=== PATIENT | male | born 1975 | race Caucasian/White ===

== ENCOUNTER 2017-03-24 06:46 | Emergency (ER) | payer OTHER ==
[2017-03-24] MEDS ORDERED: LIDOCAINE 2% JELLY 30 ML TUBE TOP ONE (07:13)
--- NOTE | 2017-03-24 07:14 | ER Document Report ---
ED General - General Chief Complaint: Rectal Pain Stated Complaint: RECTAL PAIN Time Seen by Provider: 03/24/17 07:03 Mode of Arrival: Ambulatory Information source: Patient Notes: 41 yr old male presents with complaints of rectal pain of a few day duration, pt denies any fevers or chills, admits ot pain with bm TRAVEL OUTSIDE OF THE [place] IN LAST 30 DAYS: No - HPI Onset: Other - 3-4 days of rectal pain Onset/Duration: Persistent Quality of pain: Burning, Sharp Severity: Mild Pain Level: 1 Associated symptoms: Other Exacerbated by: Other - bowel movements Relieved by: Denies Similar symptoms previously: No Recently seen / treated by doctor: No - Related Data Allergies/Adverse Reactions: No Known Allergies Allergy (Unverified 03/24/17 06:57) Home Medications: Current Home Medications Albuterol Sulfate [Proair HFA] 2 puff IH Q4 PRN 03/24/17 [History] Aspirin [Aspirin 81 mg Chewable Tablet] 81 mg PO DAILY 03/24/17 [History] Atorvastatin Calcium 40 mg PO DAILY 03/24/17 [History] Lisinopril 1 tab PO DAILY 03/24/17 [History] Ranitidine HCl [Zantac] 150 mg PO DAILY 03/24/17 [History] Umeclidinium Brm/Vilanterol Tr [Anoro Ellipta 62.5-25 Mcg INH] 1 each IH DAILY 03/24/17 [History] Past Medical History - Social History Smoking Status: Never Smoker Cigarette use (# per day): No Chew tobacco use (# tins/day): No Smoking Education Provided: No Frequency of alcohol use: Occasional Family History: Reviewed & Not Pertinent Patient has suicidal ideation: No Patient has homicidal ideation: No Pulmonary Medical History: Reports: Hx COPD Renal/ Medical History: Denies: Hx Peritoneal Dialysis - Immunizations Hx Diphtheria, Pertussis, Tetanus Vaccination: - unknown Review of Systems - Review of Systems Notes: REVIEW OF SYSTEMS: CONSTITUTIONAL : Denies fever, chills, or sweats. Denies recent illness. EENT: Denies eye, ear, throat, or mouth pain or symptoms. Denies nasal or sinus congestion or discharge. Denies throat, tongue, or mouth swelling or difficulty swallowing. CARDIOVASCULAR: Denies chest pain. Denies palpitations or racing or irregular heart beat. Denies ankle edema. RESPIRATORY: Denies cough, cold, or chest congestion. Denies shortness of breath, difficulty breathing, or wheezing. GASTROINTESTINAL: rectal pain GENITOURINARY: Denies difficulty urinating, painful urination, burning, frequency, blood in urine, or discharge. MUSCULOSKELETAL: Denies back or neck pain or stiffness. Denies joint pain or swelling. SKIN: Denies rash, lesions or sores. HEMATOLOGIC : Denies easy bruising or bleeding. LYMPHATIC: Denies swollen, enlarged glands. NEUROLOGICAL: Denies confusion or altered mental status. Denies passing out or loss of consciousness. Denies dizziness or lightheadedness. Denies headache. Denies weakness or paralysis or loss of use of either side. Denies problems with gait or speech. Denies sensory loss, numbness, or tingling. Denies seizures. PSYCHIATRIC: Denies anxiety or stress. Denies depression, suicidal ideation, or homicidal ideation. ALL OTHER SYSTEMS REVIEWED AND NEGATIVE. Dictation was performed using [employer] voice recognition software PHYSICAL EXAMINATION: GENERAL: Well-appearing, well-nourished and in no acute distress. morbidly obese HEAD: Atraumatic, normocephalic. EYES: Pupils equal round and reactive to light, extraocular movements intact, sclera anicteric, conjunctiva are normal. ENT: Nares patent, oropharynx clear without exudates. Moist mucous membranes. NECK: Normal range of motion, supple without lymphadenopathy LUNGS: pt on O2 baseline HEART: Regular rate and rhythm without murmurs ABDOMEN: Soft, nontender, nondistended abdomen. No guarding, no rebound. No masses appreciated. rectal exam notes a small pimple near the anus, popped easily with qtip on pressure Musculoskeletal: Normal range of motion, no pitting or edema. No cyanosis. NEUROLOGICAL: Cranial nerves grossly intact. Normal speech, normal gait. Normal sensory, motor exams PSYCH: Normal mood, normal affect. SKIN: Warm, Dry, normal turgor, no rashes or lesions noted. Physical Exam - Vital signs Vitals: Temp Pulse Resp BP Pulse Ox 98 F 81 20 179/91 H 97 03/24/17 06:53 03/24/17 06:53 03/24/17 06:53 03/24/17 06:53 03/24/17 06:53 Course - Re-evaluation Re-evalutation: 03/24/17 07:28 pt has a small pimple how ever given the location a ct has been ordered to rule out a deeper abscess 03/24/17 10:48 Ct noted no abscess, inflammation noted, pt to be started on clindamycin otherwise well appearing and needs follow up with surgical clinic After performing a Medical Screening Examination, I estimate there is LOW risk for OPEN FRACTURE, COMPARTMENT SYNDROME, TENDON RUPTURE, ACUTE NEUROVASCULAR INJURY, or RETAINED FOREIGN BODY, thus I consider the discharge disposition reasonable. Also, there is no evidence or peritonitis, sepsis, or toxicity. I have reevaluated this patient multiple times and no significant life threatening changes are noted. The patient and I have discussed the diagnosis and risks, and we agree with discharging home with close follow-up with the understanding that symptoms and presentations can change. We also discussed returning to the Emergency Department immediately if new or worsening symptoms occur. We have discussed the symptoms which are most concerning (e.g., changing or worsening pain, fever, numbness, weakness, cool or painful digits) that necessitate immediate return. - Vital Signs Vital signs: Temp Pulse Resp BP Pulse Ox 98 F 81 20 179/91 H 97 03/24/17 06:53 03/24/17 06:53 03/24/17 06:53 03/24/17 06:53 03/24/17 06:53 - Laboratory Result Diagrams: 03/24/17 08:42 03/24/17 09:15 Laboratory results interpreted by me: 03/24/17 03/24/17 08:42 09:15 RDW 14.1 H AST 16 L ALT 17 L - Diagnostic Test Radiology reviewed: Image reviewed, Reports reviewed - inflammaiton Discharge - Discharge Clinical Impression: Cellulitis Qualifiers: Site of cellulitis: unspecified site Qualified Code(s): L03.90 - Cellulitis, unspecified Condition: Stable Disposition: HOME, SELF-CARE Instructions: MRSA Cellulitis ([facility]) Additional Instructions: Follow-up in 2-3 days or return immediately if there are any other concerns Prescriptions: Clindamycin HCl 300 mg PO Q6 #40 capsule Hydrocodone/Acetaminophen [Union 5-325 mg Tablet] 1 tab PO Q6 #10 tablet
[2017-03-24] MEDS ORDERED: CLINDAMYCIN HCL 150 MG CAPSULE PO ONE (07:16)
[2017-03-24 08:59] LABS: ABSOLUTE BASOPHILS # (AUTO) 0.1 10^3/uL (0.0-0.2); ABSOLUTE EOSINOPHILS # (AUTO) 0.2 10^3/uL (0.0-0.6); ABSOLUTE MONOCYTES (AUTO) 1.1 10^3/uL (0.1-1.4); ABSOLUTE NEUT (AUTO) 6.7 10^3/uL (1.7-8.2); BASOPHILS % (AUTO) 0.9 % (0-2); EOSINOPHILS % (AUTO) 1.9 % (0-6); HEMATOCRIT 43.1 % (37.9-51.0); HEMOGLOBIN 14.6 g/dL (13.5-17.0); HGB HCT DIFFERENCE 0.7; LYMPHOCYTES % (AUTO) 19.7 % (13-45); MEAN CORPUSCULAR HEMOGLOBIN 31.5 pg (27.0-33.4); MEAN CORPUSCULAR VOLUME 93 fl (80-97); MONOCYTES % (AUTO) 10.6 % (3-13); RED BLOOD COUNT 4.64 10^6/uL (4.35-5.55); RED CELL DISTRIBUTION WIDTH 14.1 % (11.5-14.0); SEGMENTED NEUTROPHILS % (AUTO) 66.9 % (42-78); WHITE BLOOD COUNT 9.9 10^3/uL (4.0-10.5)
[2017-03-24 09:40] LABS: ALANINE AMINOTRANSFERASE 17 U/L (21-72); ALBUMIN 3.8 g/dL (3.5-5.0); ALKALINE PHOSPHATASE 70 U/L (38-126); ANION GAP 10 (5-19); ASPARTATE AMINO TRANSFERASE 16 U/L (17-59); BILIRUBIN,DIRECT 0.3 mg/dL (0.0-0.4); BILIRUBIN,TOTAL 0.6 mg/dL (0.2-1.3); BLOOD UREA NITROGEN 20 mg/dL (7-20); CARBON DIOXIDE 27 mmol/L (22-30); CHLORIDE 102 mmol/L (98-107); CREATININE RESULT 0.73 mg/dL (0.52-1.25); GLUCOSE 98 mg/dL (75-110); POTASSIUM 4.8 mmol/L (3.6-5.0); SODIUM 138.9 mmol/L (137-145); TOTAL PROTEIN 6.8 g/dL (6.3-8.2)
--- NOTE | 2017-03-24 10:26 | RADIOLOGY REPORT (SQ) ---
EXAM DESCRIPTION: CT PELVIS WITH COMPLETED DATE/TIME: 03/24/2017 10:11 am REASON FOR STUDY: ana rectal vs perianal abscess COMPARISON: None. TECHNIQUE: CT scan of the pelvis performed using helical scanning technique with dynamic intravenous contrast injection. No oral contrast. Images reviewed with lung, soft tissue, and bone windows. Rec onstructed coronal and sagittal MPR images reviewed. Delayed images for evaluation of the urinary sys tem also acquired. All images stored on PACS. All CT scanners at this facility use dose modulation, iterative reconstruction, and/or weight based d osing when appropriate to reduce radiation dose to as low as reasonably achievable (ALARA). [facility]: Dose Right [facility]: CareDose [facility]: Dose Right [facility]: Teradose 4D [facility]: Spotlime CONTRAST TYPE AND DOSE: contrast/concentration: Isovue 370.00 mg/ml; Total Contrast Delivered: 100.0 ml; Total Saline Delivered: 72.0 ml RENAL FUNCTION: GFR > 60. RADIATION DOSE: Up-to-date CT equipment and radiation dose reduction techniques were employed. CTDIv ol: 30.0 mGy. DLP: 3113 mGy-cm.. LIMITATIONS: Body habitus. FINDINGS: There is stranding of the fat in the presacral space extending to the posterior rectal mes entery. Stranding of the perianal soft tissues. No organized fluid collection. Bilateral external iliac and inguinal nodes measuring up to about 1 cm in short axis. Pelvic organs are otherwise unremarkable. No acute bone findings. IMPRESSION: Perirectal and perianal inflammation. No abscess identified. TECHNICAL DOCUMENTATION: JOB ID: [id number] Quality ID # [id number]: Final reports with documentation of one or more dose reduction techniques (e.g., Au tomated exposure control, adjustment of the mA and/or kV according to patient size, use of iterative reconstruction technique) 2010 [employer]- All Rights Reserved
[2017-03-24 11:13] VITALS: BP 138/83
== END 2017-03-24 11:13 | disposition home or self-care (01) ==
LOC: ER 06:46
DX: L03.90 Cellulitis, unspecified (principal); K62.89 Other specified diseases of anus and rectum; Z79.899 Other long term (current) drug therapy
CPT/HCPCS: 36415; 72193; 80053; 85025; 99284

== ENCOUNTER 2017-03-27 00:06 | Emergency (ER) | payer OTHER ==
[2017-03-27] MEDS ORDERED: METRONIDAZOLE 500 MG TABLET PO ONE (01:50)
--- NOTE | 2017-03-27 01:56 | ER Document Report ---
ED General - General Chief Complaint: Rectal Pain Stated Complaint: RECTAL PAIN Time Seen by Provider: 03/27/17 01:38 Notes: Patient is a 41-year-old male who presents with complaint of continued rectal pain. His evaluated few days ago and placed on clindamycin for rectal cellulitis. He says he still has burning in his rectum. He also says he has a small knot over left inguinal area that he is concerned could be recurrence of new infection. Said no fevers. No vomiting. He has had diarrhea that started immediately after he started the clindamycin. When he was seen here 3 days ago he had a CT scan performed which showed no abscess. TRAVEL OUTSIDE OF THE [place] IN LAST 30 DAYS: No - Related Data Allergies/Adverse Reactions: No Known Allergies Allergy (Verified 03/27/17 00:35) Past Medical History - Social History Smoking Status: Former Smoker Chew tobacco use (# tins/day): No Frequency of alcohol use: None Drug Abuse: None Family History: Reviewed & Not Pertinent Pulmonary Medical History: Reports: Hx COPD Renal/ Medical History: Denies: Hx Peritoneal Dialysis - Immunizations Hx Diphtheria, Pertussis, Tetanus Vaccination: - unknown Review of Systems - Review of Systems Notes: My Normal Review Basic REVIEW OF SYSTEMS: CONSTITUTIONAL : Denies fever, chills, or sweats. Denies recent illness. RESPIRATORY: Denies cough, cold, or chest congestion. Denies shortness of breath, difficulty breathing, or wheezing. GASTROINTESTINAL: Denies abdominal pain. Denies nausea, vomiting, or diarrhea. Denies constipation. Rectal pain. MUSCULOSKELETAL: Denies neck or back pain or joint pain or swelling. SKIN: Denies rash or skin lesions. NEUROLOGICAL: Denies altered mental status or loss of consciousness. Denies headache. Denies weakness or paralysis or loss of use of either side. Denies problems with gait or speech. Denies sensory or motor loss. ALL OTHER SYSTEMS REVIEWED AND NEGATIVE. Physical Exam - Vital signs Vitals: Temp Pulse Resp BP Pulse Ox 98.4 F 89 24 H 173/95 H 95 03/27/17 00:35 03/27/17 00:35 03/27/17 00:35 03/27/17 00:35 03/27/17 00:35 - Notes Notes: General Appearance: Well nourished, alert, cooperative, no acute distress, mild obvious discomfort. Well-appearing. Vitals: reviewed, See vital signs table. Head: no swelling or tenderness to the head Eyes: PERRL, EOMI, Conjuctiva clear Mouth: No decreasd moisture Lungs: No wheezing, No rales, No rhonci, No accessory muscle use, good air exchange bilaterally. Heart: Normal rate, Regular rythm, No murmur, no rub Abdomen: Normal BS, soft, No rigidity, No abdominal tenderness, No guarding, no rebound, no abdominal masses, no organomegaly Rectal exam. Patient has normal-appearing rectal mucosa without any erythema redness or swelling. Extremities: strength 5/5 in all extremities, good pulses in all extremities, no swelling or tenderness in the extremities, no edema. Skin: Patient has a small knot to the appears consistent with a infected hair follicle in the left inguinal area. There is no surrounding swelling. There is no spreading redness. Neuro: speech clear, oriented x 3, normal affect, responds appropriately to questions. Course - Re-evaluation Re-evalutation: 03/27/17 06:50 I will stop the patient's clindamycin and switch him to Bactrim as this is a little bit less likely to cause C. difficile for diarrhea. I do not think the patient currently has C. difficile mainly because the diarrhea started only 1 day after the clindamycin. I therefore thinks he has more irritation from antibiotic itself. I will still place him on Flagyl to help prevent development of C. difficile infection. His rectal cellulitis clinically appears to be very improved as he has no redness or swelling erythema around the rectum at all. He already has lidocaine jelly applied to his rectum. He is on hydrocodone. He is almost out of his Vicodin. I will write prescription for a few more pills. They plan on driving back home to [place] tomorrow. I encouraged him to follow-up closely with his doctor in 2-3 days for reevaluation. I informed him he must go to the nearest ER or hospital immediately if he has fevers, abdominal pain, swelling or pain over the rectum that is worsening, or if he has any spreading erythema from the infected hair follicle in the left inguinal area. Currently there is no drainable abscess and no significant associated erythema over the left inguinal area. Dictation of this chart was performed using voice recognition software; therefore, there may be some unintended grammatical errors. - Vital Signs Vital signs: Temp Pulse Resp BP Pulse Ox 98.4 F 86 18 157/95 H 98 03/27/17 00:35 03/27/17 03:19 03/27/17 03:19 03/27/17 03:19 03/27/17 03:19 Discharge - Discharge Clinical Impression: Rectal pain Diarrhea Qualifiers: Diarrhea type: unspecified type Qualified Code(s): R19.7 - Diarrhea, unspecified Condition: Good Disposition: HOME, SELF-CARE Additional Instructions: Please stop taking the clindamycin. Please start taking the Bactrim instead. I will add a new antibiotic called flagyl. This help prevents a bacterial diarrhea called C.diff. It is very important you follow up with your doctor within 3-4 days for reevaluation. If you continue to have diarrhea at that time than a doctor will need to test your stool for C.diff. Please go to the nearest ER if you have fevers, spreading redness over the small knot on your left inner thigh, swelling, or worsening pain. Prescriptions: Hydrocodone/Acetaminophen [Perkins 5-325 mg Tablet] 1 tab PO Q4 PRN #14 tablet PRN Reason: For Breakthrough Pain Metronidazole [Flagyl 500 mg Tablet] 500 mg PO Q8H #28 tablet Sulfamethoxazole/Trimethoprim [Bactrim Ds Tablet] 1 each PO BID #8 tablet Forms: Special Work Note
[2017-03-27 03:20] VITALS: BP 157/95
== END 2017-03-27 03:19 | disposition home or self-care (01) ==
LOC: ER 00:06
DX: K61.1 Rectal abscess (principal); K62.89 Other specified diseases of anus and rectum; R19.7 Diarrhea, unspecified; L73.9 Follicular disorder, unspecified; Z87.891 Personal history of nicotine dependence; J44.9 Chronic obstructive pulmonary disease, unspecified
CPT/HCPCS: 99283